=== PATIENT | male | born 1955 | race Caucasian/White ===

== ENCOUNTER 2020-03-10 15:59 | Emergency (ER) | payer OTHER, SELFPAY ==
--- NOTE | 2020-03-10 | ECG_ITS ---
Test Reason : CHEST PAIN Blood Pressure : / mmHG Vent. Rate : 079 BPM Atrial Rate : 079 BPM P-R Int : 168 ms QRS Dur : 074 ms QT Int : 356 ms P-R-T Axes : 050 -04 039 degrees QTc Int : 408 ms Normal sinus rhythm Normal ECG When compared with ECG of 19-DEC-2016 17:44, Heart rate has increased Referred By: Generic ED Physician Electronically Signed By:DEBO PALACIOS
--- NOTE | 2020-03-10 | CT_ITS ---
EXAMINATION: CT ANGIOGRAM OF THE CHEST WITH AND WITHOUT CONTRAST (CT PULMONARY ANGIOGRAM FOR PE) CLINICAL INFORMATION: Shortness of breath COMPARISON: None TECHNIQUE: Prior to contrast administration, noncontrast localization images were obtained. Subsequently, multidetector volumetric imaging was performed from the thoracic inlet to below the diaphragms following the administration of 55 mL Omnipaque 350 intravenous contrast. No contrast reaction reported Sagittal, coronal, and MIP oblique sagittal reformatted images were obtained on the CT workstation, uploaded to PACS, and reviewed. This CT examination was performed using dose optimization techniques as appropriate, variously including the following: *Automated exposure control *Adjustment of mA and/or kV according to patient size (this includes techniques or standardized protocols for targeted exams where dose is matched to indication/reason for exam; i.e. extremities or head) *Use of iterative reconstruction technique Total exam dose-length product 213 mGy-cm FINDINGS: QUALITY OF STUDY/CONTRAST BOLUS: Satisfactory. PULMONARY ARTERIES: No central or segmental pulmonary emboli. THORACIC AORTA: No aneurysm or dissection. LUNG: Mild centrilobular emphysematous change of lungs. There is no infiltrate. No suspicious lung nodule. PLEURA: No pleural effusion or pneumothorax. MEDIASTINUM: Normal heart size. No pericardial effusion. No hilar or mediastinal lymphadenopathy. No evidence of septal bowing or right heart strain. CHEST WALL/AXILLA: No axillary or internal mammary lymphadenopathy. OSSEOUS STRUCTURES: No acute or suspicious osseous abnormality. UPPER ABDOMEN: Unremarkable. No reflux of contrast into the hepatic veins to suggest elevated right heart pressures. IMPRESSION: 1. No acute abnormality of chest. No evidence of pulmonary embolism. 2. Mild emphysematous change of lungs. VTE: negative
--- NOTE | 2020-03-10 | XR_ITS ---
EXAMINATION: XR CHEST CLINICAL INFORMATION: Chest pain COMPARISON: Chest x-ray 12/19/2016 TECHNIQUE: Frontal portable view of the chest was obtained. 6:56 PM FINDINGS: No significant abnormality is noted involving the heart, lungs, mediastinum, bony thorax or soft tissues. IMPRESSION: Unremarkable examination.
[2020-03-10 18:37] VITALS: BP 127/63; PULSE 70; RESP 12; TEMP 36.9; O2SAT 97; BMI 23.9
--- NOTE | 2020-03-10 18:37 | ED.CHESTPAIN ---
HPI - Chest Pain General Chief Complaint: Chest Pain Stated Complaint: chest pain Time Seen by Provider: 03/10/20 18:34 History of Present Illness HPI narrative: Patient is 65 years old presents today with having chest pain. The pain is sharp in nature it is over the left chest. It is nonradiating. It has been ongoing for the last 3-4 days. There is nothing specifically triggering it. It is associated with minimal shortness of breath. Not associated with ambulation. He does have a history of smoking. History of high cholesterol. No history of diabetes, hypertension, [place]. No history of stress test. No coughing or congestion or upper respiratory symptoms. No leg swelling. No history of blood clots. The pain is 5/10. It is nonradiating over the left chest. MD complaint: chest pain Risk Factors Coronary artery disease risk factors: smoking history and hyperlipidemia Related Data Allergies Allergy/AdvReac Type Severity Reaction Status Date / Time penicillin G Allergy Unknown Verified 10/03/18 00:00 Penicillins [PENICILLINS] Allergy Unknown UNKNOWN Unverified 02/25/20 15:59 Review of Systems Review of Systems: Yes all other systems are reviewed and are negative Eyes: Eyes: Reports as per HPI ENT: Reports system reviewed and no additional complaints, except as documented Cardiovascular: Cardiovascular: Reports as per HPI Respiratory: Respiratory: Reports no additional respiratory complaints Gastrointestinal: Gastrointestinal: Reports no additional gastrointestinal complaints Musculoskeletal: Musculoskeletal: Reports no additional musculoskeletal complaints Integumentary/Breasts: Skin/Breast: Reports system reviewed and no additional complaints, except as docu Neurologic: Reports system reviewed and no additional complaints, except as documented Psychiatric: Psychiatric: Reports no additional psychiatric complaints Endocrine: Endocrine: Reports no additional endocrine complaints Hematologic/Lymphatic: Hematologic/Lymphatic: Reports no additional hematologic/lymphatic complaints Allergic/Immunologic: Allergic/Immunologic: Reports no additional allergic/immunologic complaints [facility] Past Medical History Attestation statement: The following information was validated with the patient. Medical History Anemia Hyperlipemia Social History Social History Smoking Status: Current every day smoker Use of substances other than those prescribed or required for medical reasons: Yes Substance Use Type: Crack/Cocaine, Heroin and Opiates Substance Use Frequency: Recent Binge Last Used Substance: Days (ago) Any prior treatment program specific to substance use: Yes (MTD) Advance Directives: No Advance Directives Information Provided: No Physical Exam Vital Signs and I&O and Narrative: Vital Signs and I&O: Vital Signs Temp 98.2 F 03/10/20 19:56 Pulse 79 03/10/20 22:24 Resp 16 03/10/20 22:24 BP 128/81 03/10/20 22:24 Pulse Ox 99 03/10/20 22:24 Intake & Output 03/10/20 03/10/20 03/11/20 06:59 18:59 06:59 Weight 61.235 kg Body Mass Index 23.9 Const: General: cooperative Orientation/consciousness: oriented to person, oriented to place and oriented to time HENMT: Head: Yes normal to inspection Ears: hearing grossly normal bilaterally General nose exam: Normal external nose present Face and sinus: Yes normal facial exam Eyes: General: appearance normal, both eyes and all related structures Neck: Other: No JVD. Trachea is midline. Chest: Chest palpation & inspection: normal inspection of the chest Resp: Effort & Inspection: normal respiratory effort Auscultation: clear to auscultation bilaterally Cardio: Jugular venous distension: no JVD Palpation: normal PMI Rate: regular rate Rhythm: regular rhythm GI: Inspection: Yes normal to inspection Percussion: Yes normal to percussion Auscultation: normal bowel sounds : General: Yes no CVA tenderness Back/Spine/Pelvis: Back: no CVA tenderness Skin: General skin exam: no rashes or lesions noted Neuro: General: oriented to person, oriented to place and oriented to time Extrem: General: Yes normal to inspection and Yes full ROM Psych: Appearance: grossly normal and well kempt MDM - Chest Pain MDM Narrative Medical decision making narrative: Patient has chest pain that is atypical. It has been constant. Patient's chest x-ray was negative for pneumonia. D-dimer elevated will get a CTA to rule out the possibility of pulmonary emboli. Patient is pain atypical for ACS. Troponin negative. Heart score is a 2. Patient's electrolytes unremarkable. Medical Records Data Attestation: I reviewed the patient's medical records. Lab Data Attestation: I reviewed the patient's lab results. Result diagrams: 03/10/20 19:00 03/10/20 19:00 Labs: Lab Results 03/10/20 03/10/20 03/10/20 Range/Units 19:00 19:00 19:00 WBC 7.7 (4.8-10.8) X10*3/uL RBC 4.39 L (4.60-5.80) X10*6/uL Hgb 12.6 L (14.0-18.0) g/dl Hct 39.2 L (42-52) % MCV 89.3 (80-98) fL MCH 28.7 (27.0-33.0) pg MCHC 32.1 (31.0-36.0) g/dl RDW 13.9 (11.0-16.0) % Plt Count 194 (160-400) X10*3/uL MPV 9.8 (9.4-12.4) fL Immature Gran % (Auto) 0.4 (0.0-0.4) % Neut % (Auto) 75.8 H (45-73) % Lymph % (Auto) 13.6 L (20-40) % [place] % (Auto) 9.8 (2-11) % Eos % (Auto) 0.0 (0-4) % Baso % (Auto) 0.4 (0-2) % Neut # (Auto) 5.9 (2.0-8.3) X10*3/uL Lymph # (Auto) 1.1 L (1.2-4.9) X10*3/uL [place] # (Auto) 0.8 (0.1-1.2) X10*3/uL Eos # (Auto) 0.0 (0.0-0.4) X10*3/uL Baso # (Auto) 0.0 (0.0-0.2) X10*3/uL Abs Immat Gran (auto) 0.03 (0.00-0.03) X10*3/uL Absolute Nucleated RBC 0.000 (0.0-0.012) X10*3/uL Nucleated RBC % (auto) 0.0 (0.0-0.2) /100WBC D-Dimer 848 NG/ML Sodium 135 (135-145) mmol/L Potassium 5.3 H (3.3-5.1) mmol/l Chloride 99 (96-108) mmol/L Carbon Dioxide 25 (22-29) mmol/L Anion Gap 16 (12-20) BUN 9 (9-16) mg/dL Creatinine 1.07 (0.5-1.4) mg/dL Estim Creat Clear Calc 56.1 Estimated GFR > 60 Random Glucose 75 (60-115) mg/dL Calcium 8.9 (8.4-10.2) mg/dL Troponin I High Sens (<3.5-35.0) ng/L 03/10/20 Range/Units 19:00 WBC (4.8-10.8) X10*3/uL RBC (4.60-5.80) X10*6/uL Hgb (14.0-18.0) g/dl Hct (42-52) % MCV (80-98) fL MCH (27.0-33.0) pg MCHC (31.0-36.0) g/dl RDW (11.0-16.0) % Plt Count (160-400) X10*3/uL MPV (9.4-12.4) fL Immature Gran % (Auto) (0.0-0.4) % Neut % (Auto) (45-73) % Lymph % (Auto) (20-40) % [place] % (Auto) (2-11) % Eos % (Auto) (0-4) % Baso % (Auto) (0-2) % Neut # (Auto) (2.0-8.3) X10*3/uL Lymph # (Auto) (1.2-4.9) X10*3/uL [place] # (Auto) (0.1-1.2) X10*3/uL Eos # (Auto) (0.0-0.4) X10*3/uL Baso # (Auto) (0.0-0.2) X10*3/uL Abs Immat Gran (auto) (0.00-0.03) X10*3/uL Absolute Nucleated RBC (0.0-0.012) X10*3/uL Nucleated RBC % (auto) (0.0-0.2) /100WBC D-Dimer NG/ML Sodium (135-145) mmol/L Potassium (3.3-5.1) mmol/l Chloride (96-108) mmol/L Carbon Dioxide (22-29) mmol/L Anion Gap (12-20) BUN (9-16) mg/dL Creatinine (0.5-1.4) mg/dL Estim Creat Clear Calc Estimated GFR Random Glucose (60-115) mg/dL Calcium (8.4-10.2) mg/dL Troponin I High Sens < 3.5 (<3.5-35.0) ng/L ECG Data ECG #1: Interpretation: sinus heart rate is 80 [place] QRS QT within normal limits is no acute ST segment elevation noted. Scores Heart Score History: -0- slightly suspicious ECG: -0- normal Age: -1- >45 - <65 Risk factory: -1- 1 or 2 risk factors Troponin: -0- < or = normal limit Score: 2 Risk: 1.7% Discharge Plan Discharge Clinical Impression: Chest pain Patient Disposition: Home, Self-Care Instructions: Chest Pain (ED) Referrals: Physician,Unknown [Primary Care Provider] - 2 days Print Language: Tajik
[2020-03-10 18:44] VITALS: BP 122/71; PULSE 71; PULSE 75; RESP 12; TEMP 36.9; O2SAT 95
[2020-03-10 19:19] LABS: Basophils Percent Auto 0.4 % (0-2); Hematocrit 39.2 % (42-52); Hemoglobin 12.6 g/dl (14.0-18.0); Imm Gran Abs Auto 0.03 X10*3/uL (0.00-0.03); Imm Gran Pct Auto 0.4 % (0.0-0.4); Lymphocytes Absolute Auto 1.1 X10*3/uL (1.2-4.9); Lymphocytes Percent Auto 13.6 % (20-40); MANUAL DIFF FLAG NO; Mean Corpuscular HGB Conc 32.1 g/dl (31.0-36.0); Mean Corpuscular Hemoglobin 28.7 pg (27.0-33.0); Mean Corpuscular Volume 89.3 fL (80-98); Mean Platelet Volume 9.8 fL (9.4-12.4); Monocytes Absolute Auto 0.8 X10*3/uL (0.1-1.2); Monocytes Percent Auto 9.8 % (2-11); Neutrophils Absolute Auto 5.9 X10*3/uL (2.0-8.3); Neutrophils Percent Auto 75.8 % (45-73); Platelet Count 194 X10*3/uL (160-400); Red Blood Count 4.39 X10*6/uL (4.60-5.80); Red Cell Distribution Width 13.9 % (11.0-16.0); White Blood Count 7.7 X10*3/uL (4.8-10.8)
[2020-03-10] MEDS: Aspirin 81 MG TAB.CHEW 324 MG PO (19:28)
--- NOTE | 2020-03-10 19:30 | PC.NURSE ---
PT C/O L SIDED CHEST PAIN X 3 DAYS, DESCRIBED INTERMITTENT, WORSENED UPON INSP. RECENT RELAPSE WITH HEROIN AND MYRA. EKG COMPLETED PRIOR TO TRIAGE. VS WNL, PT SPEAKING IN FULL, CLEAR SENTENCES.LABS DRAWN, 20G IN L AC. MEDICATED PER EMR. LS CLEAR, NO LE SWELLING NOTED. PT DENIES ANY CARDIAC HX.
[2020-03-10 19:40] LABS: D Dimer 848 NG/ML
[2020-03-10 19:46] LABS: Troponin-I High Sensitivity < 3.5 ng/L (<3.5-35.0)
[2020-03-10 19:51] LABS: Anion Gap 16 (12-20); Blood Urea Nitrogen 9 mg/dL (9-16); Calcium 8.9 mg/dL (8.4-10.2); Carbon Dioxide 25 mmol/L (22-29); Chloride 99 mmol/L (96-108); Creatinine Clr Calc Pharmacy 56.1; Estimated Glomerular Filt Rate > 60; Glucose Random 75 mg/dL (60-115); Potassium 5.3 mmol/l (3.3-5.1); Sodium 135 mmol/L (135-145)
[2020-03-10 19:56] VITALS: BP 108/64; PULSE 72; RESP 18; TEMP 36.8; O2SAT 96
--- NOTE | 2020-03-10 20:47 | PC.NURSE ---
PT REPORTING RESOLVE OF CHEST PAIN /. AMBULATING INDEPENDENTLY TO BATHROOM. IN NAD.
--- NOTE | 2020-03-10 20:50 | PC.NURSE ---
PT UPDATED ON PLAN FOR CARE D./T ELEVATED D-DIMER. PT TO BE SENT TO IMAGING.
[2020-03-10] MEDS: iohexoL 350 MG/ML 100 ML INFUS..BTL IV (21:42)
[2020-03-10 22:24] VITALS: BP 128/81; PULSE 79; RESP 16; O2SAT 99
--- NOTE | 2020-03-10 22:28 | PC.NURSE ---
PT IN NAD, VS WNL. REQUESTING FOOD, REQUEST GRANTED.
== END 2020-03-10 23:20 | disposition home or self-care (01) ==
PROVIDERS: Emergency Provider Emergency Medicine Emergency Medical Services
DX: R07.89 Other chest pain (principal); E78.5 Hyperlipidemia, unspecified; F14.90 Cocaine use, unspecified, uncomplicated; F11.90 Opioid use, unspecified, uncomplicated; F17.200 Nicotine dependence, unspecified, uncomplicated
CPT/HCPCS: 36415; 71045; 71275; 80048; 84484; 85025; 85379; 93005; 93010; 99284

== ENCOUNTER 2023-12-20 11:38 | Emergency (ER) | payer OTHER, SELFPAY ==
--- NOTE | ~2023-12-20 | XR_ITS ---
EXAMINATION: XR CHEST CLINICAL INFORMATION: Shortness of breath COMPARISON: 03/10/2020 TECHNIQUE: Frontal view of the chest was obtained. FINDINGS: No focal consolidation, pulmonary edema, or pleural effusion. Stable cardiomediastinal silhouette. XR/XR chest 1V IMPRESSION: No acute cardiopulmonary findings.
--- NOTE | ~2023-12-20 | CT_ITS ---
EXAMINATION: CTA OF THE HEAD AND NECK CLINICAL INFORMATION: Generalized weakness. COMPARISON: Head CT on 12/20/2023. TECHNIQUE: Test bolus sequences followed by intravenous administration 70 mL of Omnipaque 350. Helical imaging was performed in the axial plane from the mediastinum to the skull vertex. Delayed postcontrast imaging of the head was also performed. The data was processed at the ambulatory technologist's workstation for generation of MIP sequences. Three-dimensional volume rendered reformatted images were also generated at an offline 3-D workstation. Stenoses are assessed in accordance with NASCET criteria unless otherwise indicated. This CT examination was performed using dose optimization techniques as appropriate, variously including the following: *Automated exposure control *Adjustment of mA and/or kV according to patient size (this includes techniques or standardized protocols for targeted exams where dose is matched to indication/reason for exam; i.e. extremities or head) *Use of iterative reconstruction technique DLP: 1396 mGy-cm. FINDINGS: CTA neck: The imaged aortic arch and origins of the great vessels are normal. The common carotid arteries are widely patent. The carotid bifurcations are widely patent with mild atherosclerotic wall calcifications. The cervical internal carotid arteries are normal. The vertebral arteries opacify normally and are of normal caliber. There is a lobulated low-density nodular lesion in the left tracheoesophageal groove at the thoracic inlet partially extending into the superior mediastinum with some central high attenuation, measuring approximately 3 x 1 cm in size. This soft tissue lesion does not appear to arise from the esophagus but superiorly abuts the lower left thyroid pole. This finding was visible on a prior chest CT from 03/10/2020 and is otherwise stable. Moderate to severe multilevel cervical spondylosis noted. The imaged portions of the lungs demonstrate mild emphysematous changes and subsegmental atelectasis. CTA head: The intradural vertebral arteries and basilar artery are normal. The posterior cerebral arteries are widely patent. The internal carotid arteries are of normal caliber. The [place] and MCA vascular complexes bilaterally are normal. There is no abnormal parenchymal or leptomeningeal enhancement. The venous sinuses opacify normally. CT/CT angio head neck IMPRESSION: No hemodynamically significant stenosis or occlusion in the cervical or intracranial vasculature at the level of the [place]. Moderate to severe multilevel cervical spondylosis with disc-osteophyte complexes and bulky anterior endplate spurring. Stable indeterminate lobulated 3 x 1 cm low-density nodular lesion at the thoracic inlet in the left tracheoesophageal groove, directly posterior and inferior to the left thyroid lobe. This may represent a cystic parathyroid adenoma or possibly a thymic cyst. Consider correlation with a follow-up serum PTH and calcium level.
--- NOTE | ~2023-12-20 | CT_ITS ---
EXAMINATION: CT HEAD WITHOUT CONTRAST CLINICAL INFORMATION: Confusion and weakness. COMPARISON: None. TECHNIQUE: Contiguous axial imaging was performed from the skullbase to vertex without intravenous administration of contrast. This CT examination was performed using dose optimization techniques as appropriate, variously including the following: *Automated exposure control *Adjustment of mA and/or kV according to patient size (this includes techniques or standardized protocols for targeted exams where dose is matched to indication/reason for exam; i.e. extremities or head) *Use of iterative reconstruction technique DLP: 661 mGy-cm. FINDINGS: There is no evidence of acute intracranial hemorrhage or territorial infarction. No abnormal mass effect or midline shift is seen. Gill to white matter differentiation is well preserved. No extra-axial fluid collections are identified. The ventricles are normal in size. Mild chronic white matter microangiopathic changes are visible. The osseous structures and soft tissues are normal. The mastoid air cells and visualized portions of the paranasal sinuses are well aerated. CT/CT head/brain wo IV con IMPRESSION: No acute intracranial hemorrhage or territorial infarction.
[2023-12-20 11:43] VITALS: BP 120/70; PULSE 89; RESP 18; TEMP 37.1; O2SAT 94; BMI 24.8
--- NOTE | 2023-12-20 11:44 | ED.GENADULT ---
HPI - General Adult General Chief complaint: General Medical Stated complaint: Weakness Time Seen by Provider: 12/20/23 12:08 History of Present Illness HPI narrative: See additional note from Dr. Muller 12/20/23 Related Data Allergies Allergy/AdvReac Type Severity Reaction Status Date / Time penicillin G Allergy Unknown Rash Verified 12/20/23 11:50 Penicillins [PENICILLINS] Allergy Unknown Rash Verified 12/20/23 11:50 PMFSH Past Medical History Medical History Anemia Hyperlipemia Social History Social History Use of substances other than those prescribed or required for medical reasons: Yes Substance Use Type: Heroin and IV Drugs Substance Use Frequency: Daily Substance Use Frequency Other:: Daily x40 years Advance Directives: No Advance Directives Information Provided: No Do you have a plan to hurt others: No Plan Physical Exam ED Vital Signs: Vital Signs - 24 hr 12/20/23 11:43 12/20/23 12:15 12/20/23 14:19 Temperature 98.7 F 98.0 F 97.6 F Pulse Rate 89 73 68 Respiratory Rate 18 18 16 Blood Pressure 120/70 118/65 126/70 Pulse Oximetry 94 97 99 Oxygen Delivery Method Room Air Room Air Room Air BMI result Body Mass Index 24.8 Course Course Course Narrative: This is an RME performed by Juaquin Kelley CNP: Additional HPI, ROS, PE not included below will be deferred to primary provider. Patient is a 68-year-old male who presents to the emergency department with his sister for evaluation. She reports for the past 3 days he has been having generalized weakness, multiple falls including one in the past few days down the stairs, difficulty walking around, confusion. History of IV drug use. Medications Administered Discontinued Medications Generic Name Dose Route Start Last Admin Trade Name Freq PRN Reason Stop Dose Admin Sodium Chloride 1,000 mls @ 999 mls/hr 12/20/23 12:30 12/20/23 15:50 Ns IV 12/20/23 13:30 Infused .Q1H1M GRANT Infusion Iohexol 100 ml 12/20/23 14:50 12/20/23 14:51 Iohexol 350 Mg/Ml 100 Ml Infus..Btl IV 12/20/23 14:51 70 ml ONCE ONE Administration Medical Decision Making Lab Data 12/20/23 12:02 12/20/23 12:02 Labs: Lab Results 12/20/23 12/20/23 Range/Units 12:02 13:31 WBC 6.6 (4.8-10.8) X10*3/uL RBC 4.68 (4.60-5.80) X10*6/uL Hgb 13.3 L (14.0-18.0) g/dl Hct 41.0 L (42.0-52.0) % MCV 87.6 (80.0-98.0) fL MCH 28.4 (27.0-33.0) pg MCHC 32.4 (31.0-36.0) g/dl RDW 13.7 (11.0-16.0) % Plt Count 172 (160-400) X10*3/uL MPV 10.6 (9.4-12.4) fL Immature Gran % (Auto) 0.3 (0.0-0.4) % Neut % (Auto) 79.6 H (45-73) % Lymph % (Auto) 12.0 L (20-40) % [place] % (Auto) 7.3 (2-11) % Eos % (Auto) 0.2 (0-4) % Baso % (Auto) 0.6 (0-2) % Lymph # (Auto) 0.8 L (1.2-4.9) X10*3/uL [place] # (Auto) 0.5 (0.1-1.2) X10*3/uL Eos # (Auto) 0.0 (0.0-0.4) X10*3/uL Baso # (Auto) 0.0 (0.0-0.2) X10*3/uL Abs Immat Gran (auto) 0.02 (0.00-0.03) X10*3/uL Absolute Neuts (auto) 5.3 (2.0-8.3) x10*3/uL Absolute Nucleated RBC 0.000 (0.0-0.012) X10*3/uL Nucleated RBC % (auto) 0.0 (0.0-0.2) /100WBC ESR 51 H (0-15) MM/HR Sodium 139 (135-145) mmol/L Potassium 5.0 (3.3-5.1) mmol/L Chloride 104 (96-108) mmol/L Carbon Dioxide 24 (22-29) mmol/L Anion Gap 16 (12-20) BUN 10 (9-16) mg/dL Creatinine 0.96 (0.5-1.4) mg/dL Estim Creat Clear Calc 60.0 Estimated GFR > 60 Random Glucose 101 (60-115) mg/dL Calcium 9.4 (8.4-10.2) mg/dL Magnesium 2.5 (1.6-2.6) mg/dL Total Bilirubin 0.5 (0.0-1.0) mg/dL AST 25 (5-37) U/L ALT 14 (0-40) U/L Alkaline Phosphatase 152 H (39-117) U/L Ammonia 38 (13-55) umol/L Total Creatine Kinase 49 (38-174) U/L C-Reactive Protein 2.75 H (< or = 0.50) mg/dL Total Protein 8.1 H (6.5-8.0) g/dL Albumin 4.1 (3.5-5.0) g/dL Ethyl Alcohol < 10 mg/dL Influenza Type A (PCR) NEGATIVE (Negative) Influenza Type B (PCR) NEGATIVE (Negative) RSV RNA Qual (PCR) NEGATIVE (Negative) SARS-CoV-2 RNA (RT-PCR) NEGATIVE (Negative) Discharge Plan Discharge Clinical Impression: Polysubstance abuse Patient Disposition: Home, Self-Care Instructions: Polysubstance Abuse (ED) Additional Instructions: No hemodynamically significant stenosis or occlusion in the cervical or intracranial vasculature at the level of the [place]. Moderate to severe multilevel cervical spondylosis with disc-osteophyte complexes and bulky anterior endplate spurring. Stable indeterminate lobulated 3 x 1 cm low-density nodular lesion at the thoracic inlet in the left tracheoesophageal groove, directly posterior and inferior to the left thyroid lobe. This may represent a cystic parathyroid adenoma or possibly a thymic cyst. Consider correlation with a follow-up serum PTH and calcium level. Please follow-up for the nodule noted in the thoracic inlet. Please follow-up with your primary physician. Referrals: Physician,Unknown J [Primary Care Provider] - (Please stop using recreational drugs and get help.) Print Language: [place]
--- NOTE | 2023-12-20 11:50 | ECG_ITS ---
Test Reason : AMS Blood Pressure : / mmHG Vent. Rate : 075 BPM Atrial Rate : 075 BPM P-R Int : 164 ms QRS Dur : 076 ms QT Int : 378 ms P-R-T Axes : 028 002 032 degrees QTc Int : 422 ms Normal sinus rhythm Normal ECG When compared with ECG of 10-MAR-2020 16:19, No significant change was found Referred By: Ema Kelley Electronically Signed By:Luke Merchant
[2023-12-20 12:08] LABS: MANUAL DIFF FLAG NO
[2023-12-20 12:09] LABS: Basophils Percent Auto 0.6 % (0-2); Eosinophils Percent Auto 0.2 % (0-4); Hemoglobin 13.3 g/dl (14.0-18.0); Imm Gran Abs Auto 0.02 X10*3/uL (0.00-0.03); Imm Gran Pct Auto 0.3 % (0.0-0.4); Lymphocytes Absolute Auto 0.8 X10*3/uL (1.2-4.9); Mean Corpuscular HGB Conc 32.4 g/dl (31.0-36.0); Mean Corpuscular Hemoglobin 28.4 pg (27.0-33.0); Mean Corpuscular Volume 87.6 fL (80.0-98.0); Mean Platelet Volume 10.6 fL (9.4-12.4); Monocytes Absolute Auto 0.5 X10*3/uL (0.1-1.2); Monocytes Percent Auto 7.3 % (2-11); Neutrophils Absolute Auto 5.3 x10*3/uL (2.0-8.3); Neutrophils Percent Auto 79.6 % (45-73); Platelet Count 172 X10*3/uL (160-400); Red Blood Count 4.68 X10*6/uL (4.60-5.80); Red Cell Distribution Width 13.7 % (11.0-16.0); White Blood Count 6.6 X10*3/uL (4.8-10.8)
[2023-12-20 12:15] VITALS: BP 118/65; PULSE 73; RESP 18; TEMP 36.7; O2SAT 97
--- NOTE | 2023-12-20 12:18 | PC.NURSE ---
Pt. on clinical research monitor and continuous SPO2 monitor at this time.
--- NOTE | 2023-12-20 12:20 | PC.NURSE ---
EKG complete and reviewed by Samanta Muller MD at bedside.
--- NOTE | 2023-12-20 12:27 | ED_ITS ---
HPI - General Adult General Chief complaint: General Medical Stated complaint: Weakness Time Seen by Provider: 12/20/23 12:08 History of Present Illness HPI narrative: Patient is a 68-year-old male with a history of polysubstance abuse history of IV drug use for the last 50 years. Presented today with having generalized malaise weakness. Not quite himself per family. Patient admits to using heroin. Last use was just prior to arrival. Feels very weak tired. Family stated patient has not been eating well. Has had multiple falls. He denies drinking any alcohol. He denies any fever chills. No back pain. No coughing or congestion or upper respiratory symptoms. No pain on urination. He is from home. No new medication. No other drugs. Related Data Allergies Allergy/AdvReac Type Severity Reaction Status Date / Time penicillin G Allergy Unknown Rash Verified 12/20/23 11:50 Penicillins [PENICILLINS] Allergy Unknown Rash Verified 12/20/23 11:50 Review of Systems 2 Review of Systems: Positive generalized malaise weakness PMFSH Past Medical History Medical History Anemia Hyperlipemia Social History Social History Use of substances other than those prescribed or required for medical reasons: Yes Substance Use Type: Heroin and IV Drugs Substance Use Frequency: Daily Substance Use Frequency Other:: Daily x40 years Advance Directives: No Advance Directives Information Provided: No Do you have a plan to hurt others: No Plan Physical Exam ED Vital Signs: Vital Signs - 24 hr 12/20/23 11:43 12/20/23 12:15 12/20/23 14:19 Temperature 98.7 F 98.0 F 97.6 F Pulse Rate 89 73 68 Respiratory Rate 18 18 16 Blood Pressure 120/70 118/65 126/70 Pulse Oximetry 94 97 99 Oxygen Delivery Method Room Air Room Air Room Air BMI result Body Mass Index 24.8 Appearance: Lethargic, arousable with verbal stimuli. Oriented to self place and time. Eyes: Pupils are pinpoint ENT: Pharynx normal. Neck: Normal inspection. Neck supple. No lymph nodes noted. No crepitus CVS: Normal heart rate and rhythm. Pulses normal. Normal S1 and S2 Respiratory: No respiratory distress. Breath sounds normal. No Wheezing. No rales Abdomen: Soft and nontender. No rigidity. No distention. good BS x4 Skin: Multiple skin lesion noted in bilateral upper and lower extremity. Old track hdz noted. No gross fluctuance noted. No gross erythema noted. Extremities: No lower extremity edema. Neurovascular intact to all extremities. No Lacerations. No Rash Neuro: Oriented X 3. No motor deficit. No sensory deficit. Moving all extermities. No slurred speech Medications Administered Discontinued Medications Generic Name Dose Route Start Last Admin Trade Name Freq PRN Reason Stop Dose Admin Sodium Chloride 1,000 mls @ 999 mls/hr 12/20/23 12:30 12/20/23 15:50 Ns IV 12/20/23 13:30 Infused .Q1H1M GRANT Infusion Iohexol 100 ml 12/20/23 14:50 12/20/23 14:51 Iohexol 350 Mg/Ml 100 Ml Infus..Btl IV 12/20/23 14:51 70 ml ONCE ONE Administration Medical Decision Making Medical Decision Making MDM Narrative: Patient complaining of nonspecific generalized malaise weakness. Admits to using heroin. Last use heroin was just prior to arrival. On arrival patient has small pinpoint pupil. Has no specific pain. Has no fever no chills. Patient's white count is normal. No shift noted. Electrolytes unremarkable. CPK is 49 no evidence for rhabdo. Kidney functions are normal. Magnesium is normal. LFT showed minimally elevated alk-phos but AST ALT normal. Ammonia level 38. Flu COVID RSV were all negative. My interpretation of patient's chest x-ray showed no focal infiltrate. CT scan of the head was interpreted by radiologist no bleeding. No mass. CTA showed no large vessel occlusion. It did show a thoracic inlet nodule it has been there in the past. This was discussed with patient family. Will require follow-up on an outpatient basis. Patient ambulated to the bathroom well. Did have elevated sed rate and CRP. Initially we will worry that patient may have a spinal abscess. I re-evaluated the patient palpated all his spine there was no tenderness elicited felt it is of another cause. He ambulated well. Patient does not want to stop using drugs at this time. Has family to take him home. Differential Diagnosis Differential Diagnoses: The differential diagnosis associated with the presentation includes Polysubstance abuse Admission/Observation Consideration of admission/observation: Escalation of care including admission/observation considered Lab Data MDM Lab Attestation statement: I reviewed the patient's lab results. 12/20/23 12:02 12/20/23 12:02 Labs: Lab Results 12/20/23 12/20/23 Range/Units 12:02 13:31 WBC 6.6 (4.8-10.8) X10*3/uL RBC 4.68 (4.60-5.80) X10*6/uL Hgb 13.3 L (14.0-18.0) g/dl Hct 41.0 L (42.0-52.0) % MCV 87.6 (80.0-98.0) fL MCH 28.4 (27.0-33.0) pg MCHC 32.4 (31.0-36.0) g/dl RDW 13.7 (11.0-16.0) % Plt Count 172 (160-400) X10*3/uL MPV 10.6 (9.4-12.4) fL Immature Gran % (Auto) 0.3 (0.0-0.4) % Neut % (Auto) 79.6 H (45-73) % Lymph % (Auto) 12.0 L (20-40) % [place] % (Auto) 7.3 (2-11) % Eos % (Auto) 0.2 (0-4) % Baso % (Auto) 0.6 (0-2) % Lymph # (Auto) 0.8 L (1.2-4.9) X10*3/uL [place] # (Auto) 0.5 (0.1-1.2) X10*3/uL Eos # (Auto) 0.0 (0.0-0.4) X10*3/uL Baso # (Auto) 0.0 (0.0-0.2) X10*3/uL Abs Immat Gran (auto) 0.02 (0.00-0.03) X10*3/uL Absolute Neuts (auto) 5.3 (2.0-8.3) x10*3/uL Absolute Nucleated RBC 0.000 (0.0-0.012) X10*3/uL Nucleated RBC % (auto) 0.0 (0.0-0.2) /100WBC ESR 51 H (0-15) MM/HR Sodium 139 (135-145) mmol/L Potassium 5.0 (3.3-5.1) mmol/L Chloride 104 (96-108) mmol/L Carbon Dioxide 24 (22-29) mmol/L Anion Gap 16 (12-20) BUN 10 (9-16) mg/dL Creatinine 0.96 (0.5-1.4) mg/dL Estim Creat Clear Calc 60.0 Estimated GFR > 60 Random Glucose 101 (60-115) mg/dL Calcium 9.4 (8.4-10.2) mg/dL Magnesium 2.5 (1.6-2.6) mg/dL Total Bilirubin 0.5 (0.0-1.0) mg/dL AST 25 (5-37) U/L ALT 14 (0-40) U/L Alkaline Phosphatase 152 H (39-117) U/L Ammonia 38 (13-55) umol/L Total Creatine Kinase 49 (38-174) U/L C-Reactive Protein 2.75 H (< or = 0.50) mg/dL Total Protein 8.1 H (6.5-8.0) g/dL Albumin 4.1 (3.5-5.0) g/dL Ethyl Alcohol < 10 mg/dL Influenza Type A (PCR) NEGATIVE (Negative) Influenza Type B (PCR) NEGATIVE (Negative) RSV RNA Qual (PCR) NEGATIVE (Negative) SARS-CoV-2 RNA (RT-PCR) NEGATIVE (Negative) Independent Interpretation I performed an independent interpretation of an: EKG (Sinus heart rate is 75 ME QRS QTC normal there is no acute ST segment elevation noted.) and CT Scan (CT scan of the head was grossly negative) Radiology Impression Discussion of test interpretation with radiology: I have reviewed the radiologist's reading. Independent Historian Additional history obtained through patient's family including patient's sister and patient's son. Chronic Conditions Polysubstance abuse Discharge Plan Discharge Clinical Impression: Polysubstance abuse Patient Disposition: Home, Self-Care Instructions: Polysubstance Abuse (ED) Additional Instructions: No hemodynamically significant stenosis or occlusion in the cervical or intracranial vasculature at the level of the [place]. Moderate to severe multilevel cervical spondylosis with disc-osteophyte complexes and bulky anterior endplate spurring. Stable indeterminate lobulated 3 x 1 cm low-density nodular lesion at the thoracic inlet in the left tracheoesophageal groove, directly posterior and inferior to the left thyroid lobe. This may represent a cystic parathyroid adenoma or possibly a thymic cyst. Consider correlation with a follow-up serum PTH and calcium level. Please follow-up for the nodule noted in the thoracic inlet. Please follow-up with your primary physician. Referrals: Physician,Unknown J [Primary Care Provider] - (Please stop using recreational drugs and get help.) Print Language: [place]
[2023-12-20 12:32] LABS: Alanine Aminotransferase 14 U/L (0-40); Albumin Level 4.1 g/dL (3.5-5.0); Alkaline Phosphatase 152 U/L (39-117); Anion Gap 16 (12-20); Aspartate Amino Transferase 25 U/L (5-37); Bilirubin Total 0.5 mg/dL (0.0-1.0); Blood Urea Nitrogen 10 mg/dL (9-16); Calcium 9.4 mg/dL (8.4-10.2); Carbon Dioxide 24 mmol/L (22-29); Chloride 104 mmol/L (96-108); Estimated Glomerular Filt Rate > 60; Ethanol < 10 mg/dL; Glucose Random 101 mg/dL (60-115); Magnesium 2.5 mg/dL (1.6-2.6); Sodium 139 mmol/L (135-145); Total Protein 8.1 g/dL (6.5-8.0)
[2023-12-20 12:52] LABS: Influenza A PCR NEGATIVE (Negative); Influenza B PCR NEGATIVE (Negative); Resp Syncy Virus RNA Qual PCR NEGATIVE (Negative); SARS COV2 PCR INHOUSE NEGATIVE (Negative)
[2023-12-20 13:01] LABS: C Reactive Protein 2.75 mg/dL (< or = 0.50)
[2023-12-20 13:46] LABS: Ammonia 38 umol/L (13-55)
[2023-12-20] MEDS: 0.9 % Sodium Chloride 1,000 ML 999 ML IV (14:03)
[2023-12-20 14:19] VITALS: BP 126/70; PULSE 68; RESP 16; TEMP 36.4; O2SAT 99
[2023-12-20 14:36] LABS: Erythrocyte Sedimentation Rate 51 MM/HR (0-15)
[2023-12-20] MEDS: iohexoL 350 MG/ML 100 ML INFUS..BTL IV (14:51)
[2023-12-20 16:15] LABS: Appearance Urine Clear; Color Urine Yellow; Glucose Urine UA Negative (Negative); Leukocyte Esterase Urine Negative (Negative); Nitrite Urine Negative (Negative); PH 5.5 (5.0-9.0); Specific Gravity - Urine >= 1.030 (1.005-1.025); Urine Blood Negative (Negative); Urine Ketones Negative (Negative); Urine Protein Negative (Neg-Trace)
[2023-12-20 16:24] LABS: Amphetamine Screen Urine Not Detected (Not Detect); Barbiturates, Urine Not Detected (Not Detect); Benzodiazepines Screen Urine POSITIVE (Not Detect); Buprenorphine Scr Not Detected (Not Detect); Cannabinoid Screen Urine Not Detected (Not Detect); Cocaine Screen Urine POSITIVE (Not Detect); Fentanyl, urine POSITIVE (Not Detect); Methadone Screen, Urine Not Detected (Not Detect); Opiate Screen Urine POSITIVE (Not Detect); Oxycodone Screen Urine Not Detected (Not Detect); Phencyclidine Screen Urine Not Detected (Not Detect)
[2023-12-20 16:39] VITALS: BP 126/70; PULSE 68; RESP 16; TEMP 36.4; O2SAT 99
== END 2023-12-20 16:40 | disposition home or self-care (01) ==
PROVIDERS: Nurse Practitioner Family; Emergency Provider Emergency Medicine Emergency Medical Services
DX: F19.10 Other psychoactive substance abuse, uncomplicated (principal); R53.1 Weakness; R06.02 Shortness of breath; E78.5 Hyperlipidemia, unspecified; D64.9 Anemia, unspecified
CPT/HCPCS: 0241U; 36415; 70450; 70496; 70498; 71045; 80053; 80307; 81003; 82140; 82550; 83735; 85025; 85652; 86140; 93005; 99284; 99285; Q9967

== ENCOUNTER → 2023-12-20 11:50 | Outpatient (BNV) | payer OTHER, SELFPAY | PROVIDERS: Emergency Provider Emergency Medicine Emergency Medical Services; Visit Provider Internal Medicine Cardiovascular Disease | DX: R41.82 Altered mental status, unspecified (principal) | CPT/HCPCS: 93010 ==

== ENCOUNTER 2025-04-26 20:13 | Inpatient (IN) | payer OTHER, SELFPAY ==
--- NOTE | 2025-04-26 | ECG_ITS ---
Test Reason : DRUG USE Blood Pressure : */* mmHG Vent. Rate : 105 BPM Atrial Rate : 105 BPM P-R Int : 146 ms QRS Dur : 74 ms QT Int : 320 ms P-R-T Axes : 65 -12 43 degrees QTcB Int : 422 ms Sinus tachycardia Otherwise normal ECG When compared with ECG of 20-Dec-2023 12:14, Non-specific change in ST segment in Lateral leads Referred By: Generic ED Physician Electronically Signed By: MOISÉS RALPH
--- NOTE | ~2025-04-26 | XR_ITS ---
CLINICAL HISTORY: hypoxia, sepsis 2 view chest x-ray Comparison: CR/SR - XR CHEST 2 VIEWS - 12/20/23 12:28 EDT Findings: Hypoventilatory exam. No consolidation or pleural effusion. Normal size heart. No acute fracture. IMPRESSION: 1. No acute findings. This document has been electronically signed by: Malgorzata Alston MD on 04/26/2025 23:13:40
--- NOTE | ~2025-04-26 | CT_ITS ---
CLINICAL HISTORY: abd pain, sepsis CT abdomen and pelvis with contrast Comparison: None provided Findings: LIMITED CHEST: Lung bases are clear. LIVER: No focal liver lesion. BILIARY: Cholecystectomy. Mild intrahepatic biliary duct dilation, may be due to reservoir effect. PANCREAS: No mass or ductal dilatation. SPLEEN: No splenomegaly. KIDNEYS: Punctate nonobstructive calcification in the right inferior pole. No hydronephrosis. ADRENALS: No nodule. VASCULAR: No aneurysm. RETROPERITONEUM: No lymphadenopathy or mass. BOWEL/MESENTERY: No evidence of obstruction. No free fluid or air. There is mild sigmoid colonic wall thickening ABDOMINAL WALL: No mass or significant abnormality. URINARY BLADDER: No focal wall thickening. PELVIC NODES: No pelvic lymphadenopathy. PELVIC ORGANS: Normal for age. BONES: No acute fracture. OTHER: Negative. IMPRESSION: Mild sigmoid colonic wall thickening, may represent infectious or inflammatory colitis. Cholecystectomy with mild intrahepatic biliary ductal dilation. This may be due to reservoir effect, however correlate with laboratory values. This document has been electronically signed by: Malgorzata Alston MD on 04/27/2025 00:28:42
[2025-04-26 20:19] VITALS: BP 122/61; PULSE 117; RESP 22; TEMP 36.7; O2SAT 98; BMI 28.3
[2025-04-26 20:34] LABS: Hematocrit 37.8 % (42.0-52.0); Hemoglobin 12.2 g/dl (14.0-18.0); Mean Corpuscular HGB Conc 32.3 g/dl (31.0-36.0); Mean Corpuscular Hemoglobin 28.2 pg (27.0-33.0); Mean Corpuscular Volume 87.5 fL (80.0-98.0); NRBC Abs Auto 0.000 X10*3/uL (0.0-0.012); NRBC Pct Auto 0.0 /100WBC (0.0-0.2); Platelet Count 197 X10*3/uL (160-400); Red Blood Count 4.32 X10*6/uL (4.60-5.80); White Blood Count 6.7 X10*3/uL (4.8-10.8)
[2025-04-26 20:50] LABS: Alanine Aminotransferase 71 U/L (0-40); Albumin Level 3.9 g/dL (3.5-5.0); Alkaline Phosphatase 286 U/L (39-117); Anion Gap 14 (12-20); Aspartate Amino Transferase 225 U/L (5-37); Blood Urea Nitrogen 15 mg/dL (9-16); Calcium 9.4 mg/dL (8.4-10.2); Carbon Dioxide 21 mmol/L (22-29); Chloride 107 mmol/L (96-108); Creatinine Clr Calc Pharmacy 52.3; Estimated Glomerular Filt Rate > 60; Lipase 7 U/L (8-78); Potassium 4.1 mmol/L (3.3-5.1); Sodium 138 mmol/L (135-145); Total Protein 7.4 g/dL (6.5-8.0)
[2025-04-26 21:08] LABS: Neutrophils Percent Manual 73 % (45-73)
[2025-04-26 21:11] VITALS: BP 119/71; PULSE 108; RESP 20; O2SAT 91
[2025-04-26 21:12] LABS: Band Neutrophils Percent 19 % (3-5); Basophils Abs Manual 0.1 X10*3/uL (0.0-0.2); Basophils Percent Manual 2 % (0-2); Eosinophils Absolute Manual 0.1 X10*3/uL (0.0-0.4); Eosinophils Percent Manual 1 % (0-4); Lymphocytes Absolute Manual 0.3 X10*3/uL (1.2-4.9); Lymphocytes Percent Manual 4 % (20-40); Monocytes Absolute Manual 0.1 X10*3/uL (0.1-1.2); Monocytes Percent Manual 1 % (2-11); Neutrophils Absolute Manual 6.2 X10*3/uL (2.0-8.3)
[2025-04-26 21:14] LABS: RBC Morphology NORMAL
[2025-04-26 21:15] LABS: Large Platelet PRESENT
[2025-04-26] MEDS: Lactated Ringers 1,000 ML 999 ML IV ×2 (22:12→23:36)
[2025-04-26 22:15] VITALS: BP 115/62; PULSE 98; RESP 19; TEMP 38.3; O2SAT 94
--- NOTE | 2025-04-26 22:19 | PC.NURSE ---
bilateral 20g IVs to upper arms. lower arms all scar tissue and track hdz from IVDU. abx and IVF infusing, labs obtained. oral temp 101. other VS WNL. c/o abd pain. aware
[2025-04-26] MEDS: vancomycin HCL 1,000 MG, vancomycin HCL 750 MG in 0.9 % Sodium Chloride 500 ML 267.5 MG IV (22:41)
[2025-04-26 22:45] LABS: Resp Syncy Virus RNA Qual PCR NEGATIVE (Negative); SARS COV2 PCR INHOUSE NEGATIVE (Negative)
[2025-04-26] MEDS: iohexoL 350 MG/ML 100 ML INFUS..BTL 85 ML IV (23:26)
[2025-04-26 23:33] VITALS: BP 109/57; PULSE 90; RESP 18; TEMP 37.7; O2SAT 93
[2025-04-27] VITALS (7 sets, daily range): BP systolic 100–112; BP diastolic 51–63; PULSE 70–90; RESP 16–20; TEMP 36.9–37.2; O2SAT 92–98
[2025-04-27 00:06] LABS: Reflex Lactate? Lactic Acid Added
--- NOTE | 2025-04-27 00:38 | ED.ABDPAIN ---
HPI - Abdominal Pain General Chief Complaint: Abdominal Pain Stated Complaint: drug use 4 hours ago / vomiting 2 hours ago Time Seen by Provider: 04/26/25 21:14 Source: patient, EMS, RN notes reviewed, old records reviewed and official court interpreter Mode of arrival: EMS Limitations: language barrier History of Present Illness ED Provider: Dr. Melissa Mock HPI narrative: 70-year-old male with a history of IV drug abuse, anemia, HLD presenting with abdominal pain and vomiting that began 2 hours prior to arrival. Patient is unable to pinpoint his abdominal pain. Reportedly nonbilious, nonbloody emesis. Last use of heroin was about 4 hours prior to arrival. He injects just about every day. Unable to quantify this further. Did not measure a temperature until he arrived in the emergency department. Denies coughing but has been sneezing all day. Denies chest pain or difficulty breathing. Denies bowel changes. BM earlier today was reportedly normal. Related Data Allergies Allergy/AdvReac Type Severity Reaction Status Date / Time penicillin G Allergy Unknown Rash Verified 04/26/25 20:20 Penicillins (PENICILLINS) Allergy Unknown Rash Verified 04/26/25 20:20 Review of Systems Review of Systems as per HPI, full review of systems performed and negative but for the above mentioned pertinent positives and negatives. PMFSH Past Medical History Medical History Anemia Hyperlipemia Social History Social History Smoked in Last 30 Days: Yes Use of substances other than those prescribed or required for medical reasons: Yes Substance Use Type: Heroin Advance Directives: No Advance Directives Information Provided: No Do you have a plan to hurt others: No Plan Physical Exam ED Exam Exam: GENERAL: Appears intoxicated, GCS 13, eyes open to voice, slurred speech, no acute distress. SKIN: Normal skin color for ethnicity, warm, dry, no rashes noted. HEENT: Normocephalic, atraumatic, no stridor, posterior oropharynx nonerythematous, dentition intact, EOMI, pupils are pinpoint bilaterally, reactive to light, clear rhinorrhea. NECK: Soft, supple, no step-offs, no deformities, no lymphadenopathy. CHEST: Heart regular tachycardia, no murmurs, symmetric chest rise and fall. PULMONARY: Clear to auscultation bilaterally, diminished at the bases, no labored breathing, no wheezes/rhales/rhonchi. ABDOMINAL: Soft, nondistended, positive bowel sounds in all quadrants. : Deferred. MUSCULOSKELETAL: Normal tone, full range of motion, no deformities, no peripheral edema. NEURO: GCS 13, eyes open to voice, slightly slurred speech, CN II through XII intact, equal strength and sensation bilateral upper and lower extremities, no focal neurologic deficits. PSYCHIATRIC: Flat affect, poor eye contact. Vital Signs: Vital Signs - 24 hr 04/26/25 20:19 04/26/25 21:11 04/26/25 22:15 Temperature 98.0 F 101.0 F H Pulse Rate 117 H 108 H 98 Respiratory Rate 22 H 20 19 Blood Pressure 122/61 119/71 115/62 Pulse Oximetry 98 91 L 94 Oxygen Delivery Method Room Air Room Air Room Air 04/26/25 23:33 04/27/25 00:04 04/27/25 00:24 Temperature 99.9 F 98.5 F Pulse Rate 90 89 90 Respiratory Rate 18 20 18 Blood Pressure 109/57 L 108/63 111/51 L Pulse Oximetry 93 92 93 Oxygen Delivery Method Room Air Room Air Room Air BMI result Body Mass Index 28.3 Medical Decision Making Medical Decision Making MDM Narrative: Patient presents today with a chief complaint of vomiting. Differential diagnosis includes surgical emergency such as obstruction or enteritis, as well as hyperglycemia, acidosis, food or drug ingestion, pancreatitis, CVA, allergic reaction such as anaphylaxis, cannabis hyperemesis syndrome or cyclic vomiting syndrome, among many others. Patient is not showing signs of acute dehydration or hemodynamic instability. They are having associated abdominal pain. Broad-based work-up was initiated based on above history and physical exam. 22:19 patient is flagging for sepsis with a fever of 101, HR 117, Lactic 2.5, 19% bands. He has received cefepime, vancomycin, 1 L LR bolus. Tylenol for his fever. Patient is significantly improving, defervescing. He remains nauseous though we will treat him with Zofran. Unclear what his source may be though white blood cell count is low, maybe a viral process. That being said, with bandemia of 19%, obvious concern would be for sepsis. He is high risk as an IV drug user. He has no back pain or severe skin infection. Chest x-ray is clear. We will add on a CT of the abdomen and pelvis to evaluate for intra-abdominal source. 00:50 CT shows mild colitis which could be his source. He has improved after Zofran and fluids. We will admit to hospitalist for further care and evaluation. Admitted in guarded condition. Differential Diagnosis Differential Diagnoses: The differential diagnosis associated with the presentation includes Admission/Observation Consideration of admission/observation: Escalation of care including admission/observation considered Consult Healthcare Provider Management of the patient was discussed with: Hospitalist Lab Data MDM Lab Attestation statement: I reviewed the patient's lab results. 04/26/25 20:22 04/26/25 20:22 Labs: Lab Results 04/26/25 04/26/25 04/26/25 Range/Units 20:22 21:54 22:00 WBC 6.7 (4.8-10.8) X10*3/uL RBC 4.32 L (4.60-5.80) X10*6/uL Hgb 12.2 L (14.0-18.0) g/dl Hct 37.8 L (42.0-52.0) % MCV 87.5 (80.0-98.0) fL MCH 28.2 (27.0-33.0) pg MCHC 32.3 (31.0-36.0) g/dl RDW 13.4 (11.0-16.0) % Plt Count 197 (160-400) X10*3/uL MPV 10.3 (9.4-12.4) fL Immature Gran % (Auto) Cancelled Neut % (Auto) Cancelled Lymph % (Auto) Cancelled [place] % (Auto) Cancelled Eos % (Auto) Cancelled Baso % (Auto) Cancelled Lymph # (Auto) Cancelled [place] # (Auto) Cancelled Eos # (Auto) Cancelled Baso # (Auto) Cancelled Abs Immat Gran (auto) Cancelled Absolute Neuts (auto) Cancelled Absolute Nucleated RBC 0.000 (0.0-0.012) X10*3/uL Nucleated RBC % (auto) 0.0 (0.0-0.2) /100WBC Neutrophils % (Manual) 73 (45-73) % Band Neutrophils % 19 H (3-5) % Lymphocytes % (Manual) 4 L (20-40) % Monocytes % (Manual) 1 L (2-11) % Eosinophils % (Manual) 1 (0-4) % Basophils % (Manual) 2 (0-2) % Abs Neuts (Manual) 6.2 (2.0-8.3) X10*3/uL Lymphocytes # (Manual) 0.3 L (1.2-4.9) X10*3/uL Monocytes # (Manual) 0.1 (0.1-1.2) X10*3/uL Eosinophils # (Manual) 0.1 (0.0-0.4) X10*3/uL Basophils # (Manual) 0.1 (0.0-0.2) X10*3/uL Platelet Estimate NORMAL (NORMAL) Large Platelets PRESENT Plt Morphology Comment NOTED RBC Morphology NORMAL Smear Tech's Comments MANUAL DIFF Sodium 138 (135-145) mmol/L Potassium 4.1 (3.3-5.1) mmol/L Chloride 107 (96-108) mmol/L Carbon Dioxide 21 L (22-29) mmol/L Anion Gap 14 (12-20) BUN 15 (9-16) mg/dL Creatinine 1.19 (0.5-1.4) mg/dL Estim Creat Clear Calc 52.3 Estimated GFR > 60 Random Glucose 116 H (60-115) mg/dL Lactic Acid 2.5 H* (0.5-2.0) mmol/L Calcium 9.4 (8.4-10.2) mg/dL Total Bilirubin 1.1 H (0.0-1.0) mg/dL AST 225 H (5-37) U/L ALT 71 H (0-40) U/L Alkaline Phosphatase 286 H (39-117) U/L Total Protein 7.4 (6.5-8.0) g/dL Albumin 3.9 (3.5-5.0) g/dL Lipase 7 L (8-78) U/L Ethyl Alcohol < 10 mg/dL Influenza Type A (PCR) NEGATIVE (Negative) Influenza Type B (PCR) NEGATIVE (Negative) RSV RNA Qual (PCR) NEGATIVE (Negative) SARS-CoV-2 RNA (RT-PCR) NEGATIVE (Negative) Independent Interpretation I performed an independent interpretation of an: EKG and Plain X-Ray Interpretation: My independent interpretation of the ECG reveals normal sinus tachycardia with rate of 105, leftward axis, normal intervals, no ST elevations or depressions to suggest ischemic changes, relatively unchanged from previous on 12/20/2023. My independent interpretation of the chest x-ray reveals no consolidations, pulmonary edema, pleural effusion, pneumothorax, obvious bony abnormalities. Radiology Impression Discussion of test interpretation with radiology: I have reviewed the radiologist's reading. Radiologist Impression: CT abdomen and pelvis with contrast Findings: LIMITED CHEST: Lung bases are clear. LIVER: No focal liver lesion. BILIARY: Cholecystectomy. Mild intrahepatic biliary duct dilation, may be due to reservoir effect. PANCREAS: No mass or ductal dilatation. SPLEEN: No splenomegaly. KIDNEYS: Punctate nonobstructive calcification in the right inferior pole. No hydronephrosis. ADRENALS: No nodule. VASCULAR: No aneurysm. RETROPERITONEUM: No lymphadenopathy or mass. BOWEL/MESENTERY: No evidence of obstruction. No free fluid or air. There is mild sigmoid colonic wall thickening ABDOMINAL WALL: No mass or significant abnormality. URINARY BLADDER: No focal wall thickening. PELVIC NODES: No pelvic lymphadenopathy. PELVIC ORGANS: Normal for age. BONES: No acute fracture. OTHER: Negative. IMPRESSION: Mild sigmoid colonic wall thickening, may represent infectious or inflammatory colitis. Cholecystectomy with mild intrahepatic biliary ductal dilation. This may be due to reservoir effect, however correlate with laboratory values. Independent Historian Clinical information obtained from an independent historian. History obtained from or confirmed by: EMS External Record Review External record reviewed: Inpatient record Chronic Conditions Patient?s care impacted by: Hypertension and Other (IVDA) Social Determinants Patient?s care significantly limited by Social Determinants of Health including: Problems related to primary support group and Other Social Determinant of Health Medications Administered Discontinued Medications Generic Name Dose Route Start Last Admin Trade Name Freq PRN Reason Stop Dose Admin Acetaminophen 650 mg 04/26/25 22:20 04/26/25 22:36 Acetaminophen 325 Mg Tablet PO 04/26/25 22:21 650 mg ONCE ONE Administration Lactated Ringer's 1,000 mls @ 999 mls/hr 04/26/25 21:39 04/26/25 23:36 Lr IV 04/26/25 22:39 Infused .Q1H1M ONE Infusion Ceftriaxone Sodium 2 gm/ 50 mls @ 100 mls/hr 04/26/25 21:39 04/26/25 22:40 Sodium Chloride IV 04/26/25 22:08 Infused ONCE ONE Infusion Vancomycin HCl 1,000 mg/ 535 mls @ 267.5 mls/hr 04/26/25 22:21 04/26/25 22:41 Vancomycin HCl 750 mg/ Sodium IV 04/27/25 00:20 267.5 mls/hr Chloride ONCE ONE Administration Lactated Ringer's 1,000 mls @ 999 mls/hr 04/26/25 23:16 04/26/25 23:36 Lr IV 04/27/25 00:16 999 mls/hr .Q1H1M ONE Administration Iohexol 85 ml 04/26/25 23:26 04/26/25 23:26 Iohexol 350 Mg/Ml 100 Ml Infus..Btl IV 04/26/25 23:27 85 ml ONCE ONE Administration Ondansetron HCl 4 mg 04/26/25 23:16 04/26/25 23:36 Ondansetron Hcl 4 Mg/2 Ml Vial IVPUSH 04/26/25 23:17 4 mg ONCE ONE Administration Critical Care Time Critical Care Time Critical Care Time: Yes Total Critical Care Time: 40 Attestation: CRITICAL CARE TIME: 40 minutes of critical care time was spent in direct patient care at the bedside or in the immediate area with this patient. Critical care was necessary to treat or prevent imminent or life-threatening deterioration of the following conditions sepsis due to IVDA, colitis. This patient is high risk for decompensation and/or . This time was spent assessing and managing the patient, interpreting labs and imaging, coordinating care with other medical providers, gathering history from either the patient, their representatives, EMS or chart review, and discussing management with admitting team. Discharge Plan Discharge Clinical Impression: Severe sepsis, Colitis, Active intravenous drug use, Bandemia, Acute nausea with nonbilious vomiting Patient Disposition: Admitted As Inpatient Print Language: Estonian
[2025-04-27 00:40] LABS: ~Lactic Acid-LAB USE ONLY 2.3 mmol/L (0.5-2.0)
--- NOTE | 2025-04-27 00:58 | P.HPHOSP_ITS ---
History of Present Illness Date of Service: 04/27/25 Attending physician on admission: Russ Calvin Chief Complaint: abd pain, vomiting Pt is a 70 yo male with a pmhx signifiant for polysubstance abuse including IVDU, anemia and HLD, who presented to the ED due to vomiting x2 hours with abd pain. he reports heroin use 2 hours prior to the vomiting onset. he reports sneezing all day, no fever or chills, cough, SOB, chest pain, hematemesis, diarrhea, constipation or hematochezia. he is very bothered by his itchy nose. states that his abd pain has improved and he is no longer nauseas. his abd pain was in the epigastric region and pt states it was due to wretching with vomiting. Review of Systems 2 Constitutional: Constitutional: Denies body ache(s), Denies chills, Denies fatigue, Denies fever(s) and Denies headache(s) Eyes: Eyes: Denies change in vision ENT: Denies headache(s), Denies nasal congestion, Denies nasal discharge and Denies sore throat Cardiovascular: Cardiovascular: Denies chest pain, Denies rapid heart rate, Denies leg edema, Denies lightheadedness and Denies dyspnea Respiratory: Respiratory: Denies chest congestion, Denies cough, Denies dyspnea and Denies wheezing Gastrointestinal: Gastrointestinal: Reports as per HPI Genitourinary: Genitourinary: Denies dysuria, Denies urinary frequency and Denies urinary urgency Musculoskeletal: Musculoskeletal: Denies back pain Integumentary/Breasts: Skin/Breast: Denies rash Neurologic: Denies confusion and Denies headache(s) Psychiatric: Psychiatric: Denies confusion Endocrine: Endocrine: Denies fatigue Hematologic/Lymphatic: Hematologic/Lymphatic: Denies easy bleeding Allergic/Immunologic: Allergic/Immunologic: Denies wheezing [facility] Medical History (Updated 04/27/25 @ 01:07 by Katy Velsaquez PA-C) IVDU (intravenous drug user) Substance use disorder Anemia Hyperlipemia Functional capacity: independent ambulation Social History Smoked in Last 30 Days: Yes Use of substances other than those prescribed or required for medical reasons: Yes Substance Use Type: Heroin Advance Directives: No Advance Directives Information Provided: No Do you have a plan to hurt others: No Plan Meds Allergies Allergy/AdvReac Type Severity Reaction Status Date / Time penicillin G Allergy Unknown Rash Verified 04/26/25 20:20 Penicillins (PENICILLINS) Allergy Unknown Rash Verified 04/26/25 20:20 Active Medications: Current Medications Acetaminophen (Acetaminophen 325 Mg Tablet) 650 mg PO Q6H PRN PRN Reason: Pain, Mild 1-3,fever,headache Calcium Carbonate (Calcium Carbonate 750 Mg Tab.Chew) 750 mg PO Q4H PRN PRN Reason: Heartburn Enoxaparin Sodium (Enoxaparin Sodium 40 Mg/0.4 Ml Syringe) 40 mg SUBCUT Q24H GRANT Hydromorphone HCl (Hydromorphone Hcl 1 Mg/Ml Syringe) 0.5 mg IVPUSH Q4H PRN; Protocol PRN Reason: Pain, Severe (Pain Scale 7-10) Ceftriaxone Sodium 2 gm/ (Sodium Chloride) 50 mls @ 100 mls/hr IV Q24H GRANT Metronidazole (Flagyl) 500 mg in 100 mls @ 100 mls/hr IV Q8H GRANT Lactated Ringer's (Lr) 1,000 mls @ 80 mls/hr IVCONT .[id number] GRANT Magnesium Hydroxide (Milk Of Magnesia 30 Ml Oral.Susp) 30 ml PO DAILY PRN PRN Reason: Constipation Melatonin (Melatonin 3 Mg Tablet) 6 mg PO BEDTIME PRN PRN Reason: Insomnia Ondansetron HCl (Ondansetron Hcl 4 Mg/2 Ml Vial) 4 mg IVPUSH Q8H PRN PRN Reason: Nausea and Vomiting Oxycodone HCl (Oxycodone Hcl Immed Release 5 Mg Tablet) 5 mg PO Q6H PRN PRN Reason: Pain, Moderate(Pain Scale 4-6) Sodium Chloride (0.9 % Sodium Chloride Flush 3 Ml Syringe) 3 ml IVFLUSH QSHIFT [facility] Physical Exam 2 Vital Signs and Narrative: Vital Signs: Last Vital Signs Temp 98.5 F 04/27/25 00:24 Pulse 90 04/27/25 00:24 Resp 18 04/27/25 00:24 BP 111/51 L 04/27/25 00:24 Pulse Ox 93 04/27/25 00:24 O2 Del Method Room Air 04/27/25 00:24 BMI result Body Mass Index 28.3 General: AOx3, no acute distress, appears ill, seen with pasteuriser operator Resp: CTA bilaterally CVS: S1, S2, RRR GI: +BS, generalized tenderness throughout, no distention Skin: Warm, diaphoretic Neuro: Cranial nerves II-XII grossly intact bilaterally. Motor grossly intact bilaterally Extremities: No pitting edema Psych: Appropriate affect Const: General: No confusion Orientation/consciousness: No confusion Neuro: General: No confusion Results Labs 04/26/25 20:22 04/26/25 20:22 Labs: Laboratory Results - last 24 hr 04/26/25 04/26/25 04/26/25 20:22 21:54 22:00 MCV 87.5 MCH 28.2 MCHC 32.3 RDW 13.4 Plt Count 197 MPV 10.3 Immature Gran % (Auto) Cancelled Neut % (Auto) Cancelled Lymph % (Auto) Cancelled [place] % (Auto) Cancelled Eos % (Auto) Cancelled Baso % (Auto) Cancelled Lymph # (Auto) Cancelled [place] # (Auto) Cancelled Eos # (Auto) Cancelled Baso # (Auto) Cancelled Abs Immat Gran (auto) Cancelled Absolute Neuts (auto) Cancelled Absolute Nucleated RBC 0.000 Nucleated RBC % (auto) 0.0 Neutrophils % (Manual) 73 Band Neutrophils % 19 H Lymphocytes % (Manual) 4 L Monocytes % (Manual) 1 L Eosinophils % (Manual) 1 Basophils % (Manual) 2 Abs Neuts (Manual) 6.2 Lymphocytes # (Manual) 0.3 L Monocytes # (Manual) 0.1 Eosinophils # (Manual) 0.1 Basophils # (Manual) 0.1 Platelet Estimate NORMAL Large Platelets PRESENT Plt Morphology Comment NOTED RBC Morphology NORMAL Smear Tech's Comments MANUAL DIFF Anion Gap 14 Estim Creat Clear Calc 52.3 Estimated GFR > 60 Random Glucose 116 H Lactic Acid 2.5 H* Lactic Acid F/U @ 2Hr Calcium 9.4 Total Bilirubin 1.1 H AST 225 H ALT 71 H Alkaline Phosphatase 286 H Total Protein 7.4 Albumin 3.9 Lipase 7 L Ethyl Alcohol < 10 Influenza Type A (PCR) NEGATIVE Influenza Type B (PCR) NEGATIVE RSV RNA Qual (PCR) NEGATIVE SARS-CoV-2 RNA (RT-PCR) NEGATIVE 04/27/25 00:15 MCV MCH MCHC RDW Plt Count MPV Immature Gran % (Auto) Neut % (Auto) Lymph % (Auto) [place] % (Auto) Eos % (Auto) Baso % (Auto) Lymph # (Auto) [place] # (Auto) Eos # (Auto) Baso # (Auto) Abs Immat Gran (auto) Absolute Neuts (auto) Absolute Nucleated RBC Nucleated RBC % (auto) Neutrophils % (Manual) Band Neutrophils % Lymphocytes % (Manual) Monocytes % (Manual) Eosinophils % (Manual) Basophils % (Manual) Abs Neuts (Manual) Lymphocytes # (Manual) Monocytes # (Manual) Eosinophils # (Manual) Basophils # (Manual) Platelet Estimate Large Platelets Plt Morphology Comment RBC Morphology Smear Tech's Comments Anion Gap Estim Creat Clear Calc Estimated GFR Random Glucose Lactic Acid Lactic Acid F/U @ 2Hr 2.3 H* Calcium Total Bilirubin AST ALT Alkaline Phosphatase Total Protein Albumin Lipase Ethyl Alcohol Influenza Type A (PCR) Influenza Type B (PCR) RSV RNA Qual (PCR) SARS-CoV-2 RNA (RT-PCR) Assessment and Plan (1) Severe sepsis: Status: Acute (2) Colitis: Status: Acute (3) Acute lactic acidosis: Status: Acute (4) Elevated LFTs: Status: Acute Plan Pt is a 70 yo male with a pmhx signifiant for polysubstance abuse including IVDU, anemia and HLD, who presented to the ED due to vomiting x2 hours with abd pain. severe sepsis secondary to colitis - stool studies if pt develops diarrhea - ceftriaxone and flagyl - pain management and anti-emetics - IVF - clear liquid diet - monitor CBC and CMP acute lactic acidosis, secondary to sepsis - treat underlying cause as above - IVF elevated LFTs with bile duct dilation on CT - hep A,B,C - RUQ US - monitor CMP polysubstance use/IVDU - addiction med consult anemia, at baseline - monitor CBC HLD - continue home meds med rec pending full code VTE prophy: lovenox Pt with severe sepsis secondary to colitis requiring admission for at least 2 midnights stay for IV abx and monitoring. Quality Stroke Does the patient have a stroke diagnosis?: No VTE Prior VTE?: No VTE Risk Level:: Medical - moderate - high VTE Device Contraindication: Treatment Not Indicated VTE Drug Contraindication: N/A - Med Ordered
[2025-04-27 01:17] LABS: Appearance Urine Clear; Glucose Urine UA Negative (Negative); PH 7.5 (5.0-9.0); Specific Gravity - Urine 1.025 (1.005-1.025)
[2025-04-27 01:25] LABS: Cannabinoid Screen Urine Not Detected (Not Detect)
[2025-04-27] MEDS: metroNIDAZOLE/NS 500 MG/100 ML PIGGYBACK 100 MG IV ×2 (01:44→08:30)
[2025-04-27] MEDS: Lactated Ringers 1,000 ML 80 ML IVCONT (01:44)
[2025-04-27 02:19] LABS: Reflex Lactate? 2 Y
[2025-04-27 02:54] LABS: ~Lactic Acid-LAB USE ONLY 1.8 mmol/L (0.5-2.0)
[2025-04-27 04:00] LABS: Hematocrit 32.8 % (42.0-52.0); Hemoglobin 10.8 g/dl (14.0-18.0); Mean Corpuscular HGB Conc 32.9 g/dl (31.0-36.0); Mean Corpuscular Hemoglobin 28.7 pg (27.0-33.0); Mean Corpuscular Volume 87.2 fL (80.0-98.0); NRBC Abs Auto 0.000 X10*3/uL (0.0-0.012); NRBC Pct Auto 0.0 /100WBC (0.0-0.2); Platelet Count 168 X10*3/uL (160-400); Red Blood Count 3.76 X10*6/uL (4.60-5.80); White Blood Count 22.0 X10*3/uL (4.8-10.8)
[2025-04-27 04:27] LABS: Alanine Aminotransferase 113 U/L (0-40); Albumin Level 3.3 g/dL (3.5-5.0); Alkaline Phosphatase 235 U/L (39-117); Anion Gap 13 (12-20); Aspartate Amino Transferase 206 U/L (5-37); Blood Urea Nitrogen 15 mg/dL (9-16); Calcium 8.4 mg/dL (8.4-10.2); Carbon Dioxide 21 mmol/L (22-29); Chloride 108 mmol/L (96-108); Creatinine Clr Calc Pharmacy 57.1; Estimated Glomerular Filt Rate > 60; Potassium 3.9 mmol/L (3.3-5.1); Sodium 138 mmol/L (135-145); Total Protein 6.2 g/dL (6.5-8.0)
[2025-04-27 04:33] LABS: Band Neutrophils Percent 18 % (3-5); Basophils Abs Manual 0.2 X10*3/uL (0.0-0.2); Basophils Percent Manual 1 % (0-2); Monocytes Absolute Manual 0.4 X10*3/uL (0.1-1.2); Monocytes Percent Manual 2 % (2-11); Neutrophils Absolute Manual 21.3 X10*3/uL (2.0-8.3); Neutrophils Percent Manual 79 % (45-73); RBC Morphology NORMAL
[2025-04-27 04:34] LABS: Toxic Vacuolation PRESENT
--- NOTE | 2025-04-27 07:02 | PC.NURSE ---
report taken from previous rn. pt is caox4 and in no distress. he is in nsr in lead 2. call taylor is within reach fall risk measures are in place, suction is available, he is not on o2. pt is asking for a phone to call home. plan is for admission of collitis.
[2025-04-27 08:08] LABS: HBS Num1 859.85 mIU/mL (0-7.99); HBc Num1 9.49 S/CO (0.00-0.79); HBsAGNum1 1.04 S/CO (0.00-0.99); Hepatitis A Antibody IgM 0.52 Index (0-0.79); ~HepC Num1 14.31 S/CO (0.00-0.79); ~Hepatitis A Antibody IgM Nonreactive (Nonreactive); ~Hepatitis B Surface Antibody REACTIVE (Nonreactive); ~Hepatitis C Antibody Reactive (Nonreactive)
[2025-04-27] MEDS: 0.9 % Sodium Chloride Flush 3 ML SYRINGE IVFLUSH (08:36)
[2025-04-27 08:52] LABS: HBc Num2 8.96 S/CO; HBc Num3 8.97 S/CO; HBsAGNum2 Nonreactive; HBsAGNum3 Nonreactive; Hepatitis B Surface Antigen NEGATIVE (Negative)
--- NOTE | 2025-04-27 08:52 | PHA.MEDREC ---
Addendum entered by Hardeep Willis RPh 04/27/25 09:18: Reviewed by [facility] Original Note: Pharmacy Consult ? Medication Reconciliation Pharmacy has completed the medication reconciliation. Spoke with pt, utilizing automatic packer operator and pt confirmed he is not taking any medications at this time.
--- NOTE | 2025-04-27 09:39 | PC.NURSE ---
patient is requesting to leave [facility], he reports he wants his methadone and wants to take care of his dog. This rn assured him we could confirm his methadone dose and administer, he is adamant he wants to leave. Hospitalist has been paged.
--- NOTE | 2025-04-27 09:54 | PC.NURSE ---
Pt informed this rn approx 0930 he would like to leave, this interaction was via an interpretter, he states he wants his methadone and he needs to take care of his dogs. I notifed the hospitalist via text. pt continued to escalaet andattempted to eloupe. his sister did arrive and she speajs engl[place] and hebrew. we informed mr easley of the risks associated with leaving [facility], pt is caox4, he insisted on leaving [facility]. This rn informed both Spike and his sister to return if he feels worse.
--- NOTE | 2025-04-27 14:04 | PM.DS ---
DS: Providers Provider Date of Service: 04/27/25 Date of admission: 04/27/25 00:48 Date of discharge: 04/27/25 Primary care physician: Soraida Physician DS: Diagnosis Discharge Diagnosis (1) Severe sepsis: Status: Acute (2) Colitis: Status: Acute (3) Acute lactic acidosis: Status: Acute (4) Elevated LFTs: Status: Acute DS: Summary Hospital Course Hospital Course: From admission HPI: Date of Service: 04/27/25 Attending physician on admission: Russ Calvin Chief Complaint: abd pain, vomiting Pt is a 70 yo male with a pmhx signifiant for polysubstance abuse including IVDU, anemia and HLD, who presented to the ED due to vomiting x2 hours with abd pain. he reports heroin use 2 hours prior to the vomiting onset. he reports sneezing all day, no fever or chills, cough, SOB, chest pain, hematemesis, diarrhea, constipation or hematochezia. he is very bothered by his itchy nose. states that his abd pain has improved and he is no longer nauseas. his abd pain was in the epigastric region and pt states it was due to wretching with vomiting. Hospital course: Pt is admitted to hospital for intractable nausea and vomiting possibly in the setting of colitis with severe sepsis vs IVDU. Pt was initially treated with ceftriaxone and Flagyl and started on a clear liquid diet. This morning at approximately 09:30 pt began getting restless, attempted to elope multiple times, and demanded to leave AMA. Pt was not able to be redirected or convinced to stay in the hospital despite being told of the significant health risks associated with leaving AMA, including severe sepsis, septic shock, and . Attempted to see pt but he refused to wait in left AMA from the ED prior to being seen by this provider. Time Attestation Discharge Coordination Time (in mins): 33 Quality: Safe Use of Opioids Does Pt have an Active Cancer Diagnosis on the Problem List?: No Quality: Stroke Does the patient have a stroke diagnosis?: No Physical Exam Exam: Exam: Pt left AMA before being seen by this provider Vital Signs: Vital Signs: Last Vital Signs Temp 99 F 04/27/25 07:17 Pulse 78 04/27/25 07:17 Resp 16 04/27/25 07:17 BP 100/59 L 04/27/25 07:17 Pulse Ox 98 04/27/25 07:17 O2 Del Method Room Air 04/27/25 07:17 BMI result Body Mass Index 28.3 DS: Data Data Completed and Pending Labs on day of discharge: Laboratory Results - last 24 hr 04/26/25 04/26/25 04/26/25 20:22 21:54 22:00 WBC 6.7 RBC 4.32 L Hgb 12.2 L Hct 37.8 L MCV 87.5 MCH 28.2 MCHC 32.3 RDW 13.4 Plt Count 197 MPV 10.3 Immature Gran % (Auto) Cancelled Neut % (Auto) Cancelled Lymph % (Auto) Cancelled [place] % (Auto) Cancelled Eos % (Auto) Cancelled Baso % (Auto) Cancelled Lymph # (Auto) Cancelled [place] # (Auto) Cancelled Eos # (Auto) Cancelled Baso # (Auto) Cancelled Abs Immat Gran (auto) Cancelled Absolute Neuts (auto) Cancelled Absolute Nucleated RBC 0.000 Nucleated RBC % (auto) 0.0 Neutrophils % (Manual) 73 Band Neutrophils % 19 H Lymphocytes % (Manual) 4 L Monocytes % (Manual) 1 L Eosinophils % (Manual) 1 Basophils % (Manual) 2 Abs Neuts (Manual) 6.2 Lymphocytes # (Manual) 0.3 L Monocytes # (Manual) 0.1 Eosinophils # (Manual) 0.1 Basophils # (Manual) 0.1 Toxic Vacuolation Platelet Estimate NORMAL Large Platelets PRESENT Plt Morphology Comment NOTED RBC Morphology NORMAL Smear Tech's Comments MANUAL DIFF Sodium 138 Potassium 4.1 Chloride 107 Carbon Dioxide 21 L Anion Gap 14 BUN 15 Creatinine 1.19 Estim Creat Clear Calc 52.3 Estimated GFR > 60 Random Glucose 116 H Lactic Acid 2.5 H* Lactic Acid F/U @ 2Hr Lactic Acid F/U @ 4Hr Calcium 9.4 Total Bilirubin 1.1 H AST 225 H ALT 71 H Alkaline Phosphatase 286 H Total Protein 7.4 Albumin 3.9 Lipase 7 L Urine Color Urine Appearance Urine pH Ur Specific [place] Urine Protein Urine Glucose (UA) Urine Ketones Urine Blood Urine Nitrite Ur Leukocyte Esterase Urine Opiates Screen Ur Buprenorphine Scrn Ur Oxycodone Screen Urine Methadone Screen Urine Fentanyl Screen Ur Barbiturates Screen Ur Phencyclidine Scrn Ur Amphetamines Screen U Benzodiazepines Scrn Urine Cocaine Screen U Marijuana (THC) Screen Ethyl Alcohol < 10 Hepatitis A IgM Ab Hep Bs Antigen Hep Bs Antigen (2) Hep Bs Antibody Hep B Core Total Ab Hep B Core IgM Ab Hepatitis C Ab (EIA) Influenza Type A (PCR) NEGATIVE Influenza Type B (PCR) NEGATIVE RSV RNA Qual (PCR) NEGATIVE SARS-CoV-2 RNA (RT-PCR) NEGATIVE 04/27/25 04/27/25 04/27/25 00:15 01:05 02:35 WBC RBC Hgb Hct MCV MCH MCHC RDW Plt Count MPV Immature Gran % (Auto) Neut % (Auto) Lymph % (Auto) [place] % (Auto) Eos % (Auto) Baso % (Auto) Lymph # (Auto) [place] # (Auto) Eos # (Auto) Baso # (Auto) Abs Immat Gran (auto) Absolute Neuts (auto) Absolute Nucleated RBC Nucleated RBC % (auto) Neutrophils % (Manual) Band Neutrophils % Lymphocytes % (Manual) Monocytes % (Manual) Eosinophils % (Manual) Basophils % (Manual) Abs Neuts (Manual) Lymphocytes # (Manual) Monocytes # (Manual) Eosinophils # (Manual) Basophils # (Manual) Toxic Vacuolation Platelet Estimate Large Platelets Plt Morphology Comment RBC Morphology Smear Tech's Comments Sodium Potassium Chloride Carbon Dioxide Anion Gap BUN Creatinine Estim Creat Clear Calc Estimated GFR Random Glucose Lactic Acid Lactic Acid F/U @ 2Hr 2.3 H* Lactic Acid F/U @ 4Hr 1.8 Calcium Total Bilirubin AST ALT Alkaline Phosphatase Total Protein Albumin Lipase Urine Color Yellow Urine Appearance Clear Urine pH 7.5 Ur Specific [place] 1.025 Urine Protein Negative Urine Glucose (UA) Negative Urine Ketones Negative Urine Blood Negative Urine Nitrite Negative Ur Leukocyte Esterase Negative Urine Opiates Screen POSITIVE H Ur Buprenorphine Scrn Not Detected Ur Oxycodone Screen Not Detected Urine Methadone Screen Positive H Urine Fentanyl Screen POSITIVE H Ur Barbiturates Screen Not Detected Ur Phencyclidine Scrn Not Detected Ur Amphetamines Screen Not Detected U Benzodiazepines Scrn Not Detected Urine Cocaine Screen POSITIVE H U Marijuana (THC) Screen Not Detected Ethyl Alcohol Hepatitis A IgM Ab Hep Bs Antigen Hep Bs Antigen (2) Hep Bs Antibody Hep B Core Total Ab Hep B Core IgM Ab Hepatitis C Ab (EIA) Influenza Type A (PCR) Influenza Type B (PCR) RSV RNA Qual (PCR) SARS-CoV-2 RNA (RT-PCR) 04/27/25 03:51 WBC 22.0 H RBC 3.76 L Hgb 10.8 L Hct 32.8 L MCV 87.2 MCH 28.7 MCHC 32.9 RDW 13.7 Plt Count 168 MPV 10.9 Immature Gran % (Auto) Cancelled Neut % (Auto) Cancelled Lymph % (Auto) Cancelled [place] % (Auto) Cancelled Eos % (Auto) Cancelled Baso % (Auto) Cancelled Lymph # (Auto) Cancelled [place] # (Auto) Cancelled Eos # (Auto) Cancelled Baso # (Auto) Cancelled Abs Immat Gran (auto) Cancelled Absolute Neuts (auto) Cancelled Absolute Nucleated RBC 0.000 Nucleated RBC % (auto) 0.0 Neutrophils % (Manual) 79 H Band Neutrophils % 18 H Lymphocytes % (Manual) Monocytes % (Manual) 2 Eosinophils % (Manual) Basophils % (Manual) 1 Abs Neuts (Manual) 21.3 H Lymphocytes # (Manual) Monocytes # (Manual) 0.4 Eosinophils # (Manual) Basophils # (Manual) 0.2 Toxic Vacuolation PRESENT Platelet Estimate NORMAL Large Platelets Plt Morphology Comment NORMAL RBC Morphology NORMAL Smear Tech's Comments Sodium 138 Potassium 3.9 Chloride 108 Carbon Dioxide 21 L Anion Gap 13 BUN 15 Creatinine 1.09 Estim Creat Clear Calc 57.1 Estimated GFR > 60 Random Glucose 107 Lactic Acid Lactic Acid F/U @ 2Hr Lactic Acid F/U @ 4Hr Calcium 8.4 D Total Bilirubin 1.2 H AST 206 H ALT 113 H Alkaline Phosphatase 235 H Total Protein 6.2 L Albumin 3.3 L Lipase Urine Color Urine Appearance Urine pH Ur Specific [place] Urine Protein Urine Glucose (UA) Urine Ketones Urine Blood Urine Nitrite Ur Leukocyte Esterase Urine Opiates Screen Ur Buprenorphine Scrn Ur Oxycodone Screen Urine Methadone Screen Urine Fentanyl Screen Ur Barbiturates Screen Ur Phencyclidine Scrn Ur Amphetamines Screen U Benzodiazepines Scrn Urine Cocaine Screen U Marijuana (THC) Screen Ethyl Alcohol Hepatitis A IgM Ab Nonreactive Hep Bs Antigen Not Reportable Hep Bs Antigen (2) NEGATIVE Hep Bs Antibody REACTIVE Hep B Core Total Ab Reactive Hep B Core IgM Ab Cancelled Hepatitis C Ab (EIA) Reactive H Influenza Type A (PCR) Influenza Type B (PCR) RSV RNA Qual (PCR) SARS-CoV-2 RNA (RT-PCR) Discharge Plan Discharge Anticipated Discharge Date/Time: 04/27/25 14:02 Patient Disposition: Left Against Medical Advice Discharge Diagnosis: Intractable nausea and vomiting Referrals: Physician,None [Primary Care Provider, Medical] - 1 Week Discharge Medications: No Action No Known Home Meds Discharge Orders: Discharge Order (Routine); Ordered 04/27/25 Ordered By: Mike Otoole Stand Alone Forms: Against Medical Advice Print Language: Japanese Care Plan Goals: Pt left AMA Health Concerns: Pt left AMA Plan of Treatment: Pt left AMA Assessment: Pt left AMA
--- NOTE | 2025-04-27 14:39 | MHC.CM.PN ---
PT LEFT AMA
== END 2025-04-27 15:00 | disposition left against medical advice (07) | DRG 872 ==
LOC: HO.ED 21:16 → HO.EDOVER 04-27 00:53
PROVIDERS: Admitting Provider Physician Assistant; Emergency Provider Emergency Medicine; Visit Provider Student in an Organized Health Care Education/Training Program
DX: A41.9 Sepsis, unspecified organism (principal); F17.210 Nicotine dependence, cigarettes, uncomplicated; Z71.6 Tobacco abuse counseling; R65.20 Severe sepsis without septic shock; K52.9 Noninfective gastroenteritis and colitis, unspecified; F19.90 Other psychoactive substance use, unspecified, uncomplicated; F11.90 Opioid use, unspecified, uncomplicated; D64.9 Anemia, unspecified; E78.5 Hyperlipidemia, unspecified; Z20.822 Contact with and (suspected) exposure to COVID-19
CPT/HCPCS: 36415; 71046; 74177; 80053; 80307; 81003; 83605; 83690; 85007; 85025; 85027; 86704; 86706; 86709; 86803; 87040; 87340; 87637; 93005; 99285; J0696; J1650; J1836; J2405; J3374; J7120; Q9967

== ENCOUNTER → 2025-04-26 20:28 | Outpatient (BNV) | payer OTHER, SELFPAY | PROVIDERS: Admitting Provider Physician Assistant; Emergency Provider Emergency Medicine; Visit Provider Internal Medicine | DX: R00.0 Tachycardia, unspecified (principal) | CPT/HCPCS: 93010 ==

== ENCOUNTER → 2025-04-26 21:39 | Outpatient (BNV) | payer OTHER, SELFPAY | PROVIDERS: Emergency Provider Emergency Medicine; Visit Provider Student in an Organized Health Care Education/Training Program | DX: R09.02 Hypoxemia (principal); A41.9 Sepsis, unspecified organism; K63.89 Other specified diseases of intestine; Z90.49 Acquired absence of other specified parts of digestive tract | CPT/HCPCS: 71046; 74177 ==

== ENCOUNTER → 2025-04-27 00:48 | Outpatient (BNV) | payer OTHER, SELFPAY | PROVIDERS: Admitting Provider Physician Assistant; Emergency Provider Emergency Medicine; Visit Provider Student in an Organized Health Care Education/Training Program | DX: A41.9 Sepsis, unspecified organism (principal); R65.20 Severe sepsis without septic shock; K52.9 Noninfective gastroenteritis and colitis, unspecified; E87.21 Acute metabolic acidosis; R74.01 Elevation of levels of liver transaminase levels | CPT/HCPCS: 99234; 99499 ==